=== PATIENT | female | born 1990 | race Caucasian/White ===

== ENCOUNTER → 2017-11-30 17:49 | Outpatient (REF) | payer MEDICAID, SELFPAY ==
[2017-11-30 20:58] LABS: Bacteria Few HPF (Negative); C & S Indicated? No; Casts Negative LPF (Negative); Crystals Negative HPF (Negative); Epithelial Cells Few HPF (Negative); Mucus Negative (Negative); RBC 0-2 (0-2); WBC 0-2 HPF (0-5)
[2017-12-01 16:27] LABS: T3,Free 2.7 pg/ml (2.8-5.3)
== END ==
LOC: NCHCN 17:49
PROVIDERS: PCP Specialist/Technologist Athletic Trainer; Visit Provider Specialist/Technologist Athletic Trainer
DX: E03.9 Hypothyroidism, unspecified (principal); N15.9 Renal tubulo-interstitial disease, unspecified
CPT/HCPCS: 81015; 84443; 84481

== ENCOUNTER 2017-12-18 00:34 | Outpatient (CLI) | payer MEDICAID, SELFPAY ==
--- NOTE | 2017-12-18 13:29 | DI.US_ITS ---
SYMPTOMS/DIAGNOSIS: RIGHT FLANK PAIN, R10.9, BLOOD IN URINE, RECENT UTI, ? KIDNEY STONES OR OTHER ETIOLOGY RENAL ULTRASOUND: There are no prior comparison exams. The kidneys are normal in size and echogenicity and show normal parenchymal thickness. No stones or hydronephrosis is visible. The prevoid bladder volume measured 91 cc. Both the ureteral jets were visualized. The postvoid residual measured 11 cc. There is a 2.8 x 2.7 x 3 cm hyperechoic lesion seen laterally in the right lobe of the liver, which could represent a hemangioma. IMPRESSION: Normal-appearing kidneys and bladder. A 3 cm liver lesion likely represents a hemangioma.
== END 2017-12-18 00:54 ==
PROVIDERS: PCP Family Medicine; Visit Provider Specialist/Technologist Athletic Trainer
DX: R10.31 Right lower quadrant pain (principal); R31.9 Hematuria, unspecified; N39.0 Urinary tract infection, site not specified; K76.9 Liver disease, unspecified
CPT/HCPCS: 76770

== ENCOUNTER 2019-04-16 15:54 | Outpatient (REF) | payer MEDICAID, SELFPAY ==
[2019-04-16 22:08] LABS: TSH (W/Ref FT4) 0.92 uIU/mL (0.36-3.74)
== END 2019-04-16 16:14 ==
LOC: NCHCN 15:54
PROVIDERS: PCP Family Medicine; Visit Provider Nurse Practitioner Family
DX: E03.9 Hypothyroidism, unspecified (principal)
CPT/HCPCS: 84443

== ENCOUNTER 2019-06-17 12:27 | Outpatient (CLI) | payer MEDICAID, SELFPAY ==
[2019-06-17 13:53] LABS: FREE T4 1.16 ng/dL (0.76-1.46)
[2019-06-17 21:40] LABS: T3,Free 2.8 pg/mL (2.8-5.3)
[2019-06-17 21:53] LABS: T3, Total 175 ng/dL (97-169)
[2019-06-18 09:37] LABS: C3 Complement 90 mg/dL (81-157); C4 Complement 17 mg/dL (13-39)
== END 2019-06-17 12:47 ==
PROVIDERS: PCP Family Medicine; Visit Provider Naturopath
DX: E03.9 Hypothyroidism, unspecified (principal); Z77.120 Contact with and (suspected) exposure to mold (toxic)
CPT/HCPCS: 84439; 84480; 84481; 86160

== ENCOUNTER 2019-12-02 13:56 | Outpatient (REF) | payer MEDICAID, SELFPAY ==
[2019-12-05 02:37] LABS: COVID-19 RT-PCR Result NEGATIVE (Negative)
== END 2019-12-02 14:16 ==
LOC: NCHCN 13:56
PROVIDERS: PCP Family Medicine; Visit Provider Nurse Practitioner Family
DX: J02.9 Acute pharyngitis, unspecified (principal)
CPT/HCPCS: U0003

== ENCOUNTER 2020-04-14 12:52 | Outpatient (REF) | payer MEDICAID, SELFPAY ==
[2020-04-14 15:37] LABS: TSH 1.17 uIU/mL (0.36-3.74)
== END 2020-04-14 13:12 ==
LOC: NCHCN 12:52
PROVIDERS: Nurse Practitioner Family; PCP Family Medicine; Visit Provider Family Medicine
DX: E03.9 Hypothyroidism, unspecified (principal)
CPT/HCPCS: 84443

== ENCOUNTER 2020-12-03 21:01 | Emergency (ER) | payer MEDICAID, SELFPAY ==
--- NOTE | 2020-12-03 21:00 | DI.RAD_ITS ---
Exam(s) XR ANKLE LT COMPLETE EXAM: XR ANKLE LT COMPLETE CLINICAL HISTORY: Pain, injury TECHNIQUE: COMPARISON: No exams were available for comparison FINDINGS: Three views were obtained. The ankle mortise is well maintained. No evidence of fracture or disloca tion. IMPRESSION: RADIATION DOSE DELIVERED: Total DLP
[2020-12-03 21:08] VITALS: BP 120/90; PULSE 70; RESP 14; TEMP 36.6; O2SAT 100
--- NOTE | 2020-12-03 21:12 | W.ED.GENAD ---
Discharge Plan Disposition Patient Disposition: HOME Condition: Stable Discharge Details Clinical Impression: Left ankle sprain Primary Care Provider: Alia Ferguson V ED Provider: Angela Solis Home Meds and New Rx's Prescriptions: No Action levothyroxine 88 mcg tablet 88 mcg PO DAILY RF: 0 Probiotic 20 billion cell Capsule 20 mmu cells PO DAILY RF: 0 Discharge Instructions Instructions: Ankle Sprain (ED) Additional Instructions: Rest, ice, compression, elevation. Wear the walking boot when up and around. Please take Tylenol or Ibuprofen with food every 4-6 hours as needed for pain and swelling. The x-rays today show no acute fracture. Please follow-up with orthopedics if continued pain and swelling after 2-weeks. Sprains may take up to 6 weeks to heal. Follow up with primary care provider in 3-5 days. Return to ED sooner if any worsening or concerns. Increase oral fluids. Referrals: Alia Ferguson MD [Primary Care Provider] - Cooper Carlos MD [ [facility] STAFF PHYSICIAN] - Medical Decision Making 30-year-old female presents to the ER chief complaint of left foot and ankle pain and swelling after an inversion type injury earlier today. She does have some swelling noted to the lateral aspect of her left foot. No obvious deformity. Circulation sensation movement intact distally. No other injuries or associated symptoms. xr left ankle ordered Imaging protocol: XR Left ankle. Views: 3 or more views. COMPARISON: No relevant prior studies available. FINDINGS: Bones/joints: Normal. Soft tissues: Normal. IMPRESSION: No acute findings. Thank you for allowing us to participate in the care of your patient. Dictated and Authenticated by: Chris Torres MD We will give patient a walking boot. Instructed on home care rest ice compression elevation. Instructed to follow-up with Ortho if no better or any worsening in the next 2 weeks. Patient verbalized understanding. Was given crutches but it was reviewed prior to discharge. HPI General Mode of arrival: wheelchair. Date/Time Provider Initiated Documentation: 12/03/20 21:01. Limitations to Documentation: no limitations. Information obtained by: patient. HPI Narrative: 30-year-old female presents to the ER chief complaint of left foot and ankle pain and swelling after an inversion type injury earlier today. She does have some swelling noted to the lateral aspect of her left foot. No obvious deformity. Circulation sensation movement intact distally. No other injuries or associated symptoms. Related Data Home Medications Medication Instructions Recorded Confirmed lactobacillus comb no.10 20 mmu cells PO DAILY 12/03/20 12/03/20 [Probiotic] levothyroxine 88 mcg PO DAILY 12/03/20 12/03/20 Allergies Allergy/AdvReac Type Severity Reaction Status Date / Time No Known Allergies Allergy Unverified 12/03/20 21:12 General Stated Complaint: Orthopedic ALEXA: 4 Review of Systems All systems reviewed & are unremarkable except as noted in HPI and below Musculoskeletal Musculoskeletal: Reports arthralgias and Reports joint swelling [facility] Social History Smoking/Tobacco Use Status: Never Smoking risk assessment performed?: Yes Alcohol Intake: never Substance use type: does not use Do you feel safe at home: Yes Do you feel safe in your relationship?: Yes Exam Extrem Left lower extremity: foot (swelling) Details: normal capillary refill; no abrasions and no lacerations Course Vital Signs Vital signs: Vital Signs Temperature 36.6 C 12/03/20 21:08 Pulse 70 12/03/20 21:08 Respiratory Rate 14 12/03/20 21:08 Blood Pressure 120/90 12/03/20 21:08 Pulse Oximetry 100 12/03/20 21:08 Temperature 36.6 C 12/03/20 21:08 Temperature Source Skin 12/03/20 21:08 Pulse 70 12/03/20 21:08 Respiratory Rate 14 12/03/20 21:08 Blood Pressure 120/90 12/03/20 21:08 Blood Pressure Position Sitting 12/03/20 21:08 Pulse Oximetry 100 12/03/20 21:08 Oxygen Delivery Method Room Air 12/03/20 21:08 Oxygen Flow Rate 0 12/03/20 21:08 Pain Level 2 12/03/20 21:08
--- NOTE | 2020-12-03 21:35 | DI.VRAD_ITS ---
PROCEDURE INFORMATION: Exam: XR Left Ankle Exam date and time: 12/03/2020 9:12 PM Age: 30 years old Clinical indication: Injury or trauma; Other: Rolled earlier today; Sprain or strain; Ankle; Left TECHNIQUE: Imaging protocol: XR Left ankle. Views: 3 or more views. COMPARISON: No relevant prior studies available. FINDINGS: Bones/joints: Normal. Soft tissues: Normal. IMPRESSION: No acute findings. Dictated and Authenticated by: Chris Torres MD. Ordering:JIMI Miller MD
[2020-12-03 22:11] VITALS: BP 126/68; PULSE 62; RESP 18; TEMP 36.6; O2SAT 98
== END 2020-12-03 22:25 | disposition home or self-care (01) ==
PROVIDERS: Emergency Provider Registered Nurse Emergency; PCP Family Medicine
DX: S93.492A Sprain of other ligament of left ankle, initial encounter (principal); X50.1XXA Overexertion from prolonged static or awkward postures, initial encounter
CPT/HCPCS: 29515; 99283; 73610; 99282

== ENCOUNTER 2021-01-29 01:15 | Outpatient (CLI) | payer MEDICAID, SELFPAY ==
--- NOTE | 2021-01-29 | DI.RAD_ITS ---
Exam(s) XR FOOT LT COMPLETE EXAM: XR FOOT LT COMPLETE CLINICAL HISTORY: LT FOOT PAIN, M79.672. TECHNIQUE: 2D digital imaging was performed of the left foot. Three images were obtained. AP, obli que and lateral views were obtained. COMPARISON: CR,XR XR ANKLE LT COMPLETE from 12/03/2020 FINDINGS: BONES: There is a lucency through the cuboid bones suspicious for nondisplaced fracture. The bone ap pears mildly osteopenic. No bony destructive lesion is seen. JOINTS: No dislocation present. SOFT TISSUE: Normal. IMPRESSION: Findings suspicious for a cuboid fracture. A CT scan of the left foot is recommended for further christine luation. DATA REPOSITORY: RADIATION DOSE DELIVERED:
== END 2021-01-29 01:35 ==
PROVIDERS: PCP Family Medicine; Visit Provider Nurse Practitioner Family
DX: M79.672 Pain in left foot (principal); M85.88 Other specified disorders of bone density and structure, other site
CPT/HCPCS: 73630

== ENCOUNTER 2021-02-08 01:27 | Outpatient (CLI) | payer MEDICAID, SELFPAY ==
--- NOTE | 2021-02-08 14:15 | DI.CT_ITS ---
Exam(s) CT LOWER EXTREMITY LT WO EXAM: CT LOWER EXTREMITY LT WO CLINICAL HISTORY: LT FOOT PAIN, M79.672,F/U XRAYS. TECHNIQUE: Imaging Protocol: Axial computed tomography images with coronal and sagittal reformatted images were created and reviewed. CONTRAST MATERIAL: None COMPARISON: CR XR FOOT LT COMPLETE from 01/29/2021 Also ankle x-ray 12/05/2019 FINDINGS: OSSEOUS: There is generalized osteopenia. However, there are no fractures evident. There is no evidence of o bvious cuboid fracture, apparently area of concern from recent plain films. Calcaneocuboid joint patrick ears unremarkable. Base of the 5th metatarsal appears intact. There are no obvious degenerative juan ramon nges nor erosions and no ominous osseous lesions. SOFT TISSUES: No formed fluid collection. No organized fluid collection. IMPRESSION: There is generalized osteopenia but no evidence of fracture lines. If there is a high clinical suspicion for an occult or stress fracture then MRI would be recommended. This may reveal fractures that are not seen on CT scan, particularly in the setting of osteopenia. RADIATION DOSE DELIVERED: 218.54mGy.cm Total DLP DATA REPOSITORY: All CT scans at this facility are submitted to the National Radiology Data Registry (NRDR) Dose Index Registry (DIR) with the [employer] ([employer]). RADIATION OPTIMIZATION: All CT scans at this facility use at least one of these dose optimization te chniques: automated exposure control; mA and/or kV adjustment per patient size (includes targeted exa ms where dose is matched to clinical indication); or iterative reconstruction.
== END 2021-02-08 01:47 ==
PROVIDERS: PCP Family Medicine; Visit Provider Nurse Practitioner Family
DX: M79.672 Pain in left foot (principal); M85.88 Other specified disorders of bone density and structure, other site
CPT/HCPCS: 73700

== ENCOUNTER 2021-02-22 02:28 | Outpatient (CLI) | payer MEDICAID, SELFPAY ==
--- NOTE | 2021-02-22 10:45 | DI.MRI_ITS ---
Exam(s) MR LOWER EXTREMITY LT WO EXAM: MR LOWER EXTREMITY LT WO CLINICAL HISTORY: FRACTURE OF CUBOID OF LT FOOT, SEQUELA S92.215S TECHNIQUE: Multiplanar multisequence MRI was performed without intravenous contrast. COMPARISON: CT CT LOWER EXTREMITY LT WO from 02/08/[address] LOWER EXTREMITY LT WO from 02/08/2021 FINDINGS: SKIN: No evidence of ulcer nor subcutaneous tract. BONES/JOINTS: There are fractures of both the talus and calcaneus seen on this MRI study. Calcaneus fracture lines are best seen on the T1 images and there is prominent surrounding intra osseous edema. No significant displacement. Fracture in the mid-distal talus also noted. There also appears to b e some intraosseous edema in the posterior half of the talar dome, laterally. However, there is no o steochondral defect at this level. The ankle mortise is maintained. Mild increase intraosseous si gnal is seen in the medial malleolus. Small increased amount of fluid in the ankle joint.There is no evidence of osseous tarsal coalition. More distally in the foot there is no abnormal intraosseous signal in the bases of the metatarsals. However, main Lisfranc ligament between the base of 2nd metatarsal and the medial cuneiform exhibits abnormal signal consistent with at least partial tearing. LIGAMENTS: The anterior and posterior tibiofibular and calcaneofibular ligaments are intact. The ante rior and posterior talofibular ligaments are intact. There is no abnormal mass in the anterolateral gutter. The deltoid ligament is intact. SINUS TARSI: There is effacement of the normal fat signal in this space. Interosseous ligament is in tact. There is no evidence of sinus tarsi ganglion cyst. ANTEROLATERAL GUTTER:There is no abnormal signal/abnormal tissue in this space. MUSCULOTENDINOUS STRUCTURES: Achilles tendon: Mild increased signal within its substance consistent with tendinitis. No high-grad e tear. Plantar fascia: Unremarkable. No evidence of tear, abnormal thickening, nor abnormal nodularity. Anterior Extensor tendons: Unremarkable. Medial Tendons: Posterior Tibialis: Unremarkable. No tear or tenosynovitis evident. Flexor Digitorum longus: Unremarkable. No tear or tenosynovitis evident. Flexor Hallicus longus: Unremarkable. No tear or tenosynovitis evident. Lateral Tendons: Peroneus longus: Unremarkable. No tear nor tenosynovitis evident. Peroneus brevis:Unremarkable. No tear nor tenosynovitis evident. SOFT TISSUES: Unremarkable. OTHER FINDINGS: None. IMPRESSION: 1. There are nondisplaced fractures of both the cuboid and talus, significantly better seen with MRI than on the recent CT scan. There is bone edema confined to these bones. 2. Also noted in the peripheral field of view here possible abnormality of the Lisfranc joint ligamen t which appears to exhibit some abnormal signal and may be partially torn. There is, however, no amadeo dence of fracture of the base of the metatarsals. 3. There are no tendon tears nor tenosynovitis. However, there is tendinitis signal evident within t he Achilles tendon approximately 3 cm above the insertion site on the posterior calcaneus. There is trace fluid in the retrocalcaneal bursa. DATA REPOSITORY:
== END 2021-02-22 02:48 ==
PROVIDERS: PCP Family Medicine; Visit Provider Nurse Practitioner Acute Care
DX: S92.215D Nondisplaced fracture of cuboid bone of left foot, subsequent encounter for fracture with routine healing (principal); R60.0 Localized edema; M76.62 Achilles tendinitis, left leg; S92.145D Nondisplaced dome fracture of left talus, subsequent encounter for fracture with routine healing
CPT/HCPCS: 73718

== ENCOUNTER 2021-04-22 18:19 | Outpatient (REF) | payer MEDICAID, SELFPAY ==
--- NOTE | 2021-04-22 15:00 | PAPFT_PTH ---
PATIENT: Josie Boyd LOC: [facility]#:[id number] AGE/SX: 30/F ROOM: RE04/22/[address]: Abigail Panda : 1990 BED: DIS: 04/22/2021 SPEC #: [id number] RECD: 04/22/21 18:23 STATUS: HANNAH REQ #: [id number] HEBER: 04/22/21 15:[address]: Abigail Panda DEPT: [facility] Cytology RECD BY: Sonya Hickey ENTERED: 04/22/21 18:23 SP TYPE: PAPFT OTHR DR: Alia Ferguson V Tissues: 1 - CX/ENDOCX FOR PAP SMEARS Procedures: PAP THIN PREP/UVM Screening HPV DNA PROBE Comments: [id number]
[2021-04-22 19:39] LABS: HCT 40.4 % (36.0-46.0); HGB 13.5 g/dL (11.2-15.7); MCH 30.9 pg (27.0-33.0); MCHC 33.4 % (32.0-36.0); MCV 92.4 fL (80-95); MPV 11.3 fL (8.0-11.0); Platelet Count 182 10^3/uL (130-400); RBC 4.37 10^6/uL (3.93-5.22); RDW 11.2 % (11.7-14.6); RDW-SD 38.3 fL; WBC 8.01 10^3/uL (4.4-10.8)
[2021-04-24 12:17] LABS: HIV-1/2 Ag & Ab Screen Negative (Negative)
[2021-04-26 10:53] LABS: Hepatitis C Ab w Rflx HCV PCR Negative (Negative)
[2021-04-26 16:24] LABS: Chlamydia Result Negative (Negative); GC Result Negative (Negative)
== END 2021-04-22 18:20 | disposition home or self-care (01) ==
LOC: NCHCN 18:19
PROVIDERS: PCP Family Medicine; Visit Provider Nurse Practitioner Family
DX: E03.9 Hypothyroidism, unspecified (principal); N94.12 Deep dyspareunia; Z11.59 Encounter for screening for other viral diseases; Z11.3 Encounter for screening for infections with a predominantly sexual mode of transmission; Z11.4 Encounter for screening for human immunodeficiency virus [HIV]; Z12.4 Encounter for screening for malignant neoplasm of cervix; Z11.51 Encounter for screening for human papillomavirus (HPV); Z01.419 Encounter for gynecological examination (general) (routine) without abnormal findings
CPT/HCPCS: 85027; 86803; 87389; 87491; 87591; 88142; 84443; 85025; 87480; 87510; 87624; 87660

== ENCOUNTER 2021-05-12 15:11 | Outpatient (REF) | payer MEDICAID, SELFPAY ==
[2021-05-14 20:04] LABS: Calprotectin <50.0 mcg/g
== END 2021-05-12 15:12 | disposition home or self-care (01) ==
LOC: NCHCN 15:11
PROVIDERS: PCP Family Medicine; Visit Provider Nurse Practitioner Family
DX: K58.1 Irritable bowel syndrome with constipation; K59.04 Chronic idiopathic constipation; R14.0 Abdominal distension (gaseous)
CPT/HCPCS: 83993; 87177

== ENCOUNTER 2022-05-12 16:25 | Outpatient (REF) | payer MEDICAID, SELFPAY ==
[2022-05-12 18:48] LABS: HCT 43.5 % (36.0-46.0); HGB 14.8 g/dL (11.2-15.7); MCH 30.7 pg (27.0-33.0); MCV 90 fL (80-95); MPV 10.6 fL (8.0-11.0); Platelet Count 227 10^3/uL (130-400); RBC 4.82 10^6/uL (3.93-5.22); RDW 11.4 % (11.7-14.6); RDW-SD 37.9 fL
[2022-05-12 19:13] LABS: TSH 2.19 uIU/mL (0.36-3.74)
[2022-05-12 19:25] LABS: Vitamin D 25 Total 40.3 ng/mL (30-100)
== END 2022-05-12 16:26 | disposition home or self-care (01) ==
LOC: NCHCN 16:25
PROVIDERS: PCP Family Medicine; Visit Provider Nurse Practitioner Family
DX: E03.9 Hypothyroidism, unspecified (principal); R00.2 Palpitations; F33.9 Major depressive disorder, recurrent, unspecified; N94.12 Deep dyspareunia; L30.9 Dermatitis, unspecified
CPT/HCPCS: 82306; 85027; 84443

== ENCOUNTER 2022-05-26 13:06 | Outpatient (RCR) | payer MEDICAID, SELFPAY ==
--- NOTE | 2022-05-26 13:00 | HOLTER_ITS ---
APPROVED REPORT Conclusion This is a 48-hour Holter monitor ordered for palpitations Rhythm throughout was sinus with an average heart rate of 66. Minimum was 48, maximum 112 There were very rare isolated atrial and ventricular ectopic beats There was no atrial fibrillation no high-grade AV block no SVT no pauses greater than 3 seconds Multiple patient symptoms were reported none of which corresponded to any dysrhythmia
== END 2022-06-07 23:59 | disposition home or self-care (01) ==
LOC: CARDOPNVT 13:06
PROVIDERS: PCP Family Medicine; Visit Provider Nurse Practitioner Family
DX: R00.2 Palpitations (principal)
CPT/HCPCS: 93225; 93226

== ENCOUNTER 2023-05-15 17:22 | Outpatient (REF) | payer MEDICAID, SELFPAY ==
[2023-05-15 19:48] LABS: TSH 1.36 uIU/mL (0.36-3.74)
== END 2023-05-15 17:23 | disposition home or self-care (01) ==
LOC: NCHCN 17:22
PROVIDERS: PCP Family Medicine; Visit Provider Nurse Practitioner Family
DX: E03.9 Hypothyroidism, unspecified (principal)
CPT/HCPCS: 84443

== ENCOUNTER 2025-02-03 11:59 | Outpatient (REF) | payer MEDICAID, SELFPAY ==
[2025-02-03 15:45] LABS: Hemoglobin A1C 5.1 % (<5.7)
[2025-02-03 16:28] LABS: ALT 17 U/L (14-59); AST 8 U/L (15-37); Albumin 4.4 g/dL (3.4-5.0); Alkaline Phosphatase 62 U/L (46-116); Anion Gap 9.7 mmol/L (3-11); BUN 12 mg/dL (7-18); Bilirubin, Total 0.5 mg/dL (0.2-1.0); CO2 26.3 mmol/L (21.0-32.0); Calcium 9.2 mg/dL (8.5-10.1); Chloride 104 mmol/L (98-107); Cholesterol 124 mg/dL (<200); Estimated GFR 115.59 (mL/min/1.73m2); Glucose 80 mg/dL (74-106); HDL Cholesterol 49 mg/dL (>or=50); Potassium 4.0 mmol/L (3.5-5.1); Sodium 140 mmol/L (136-145); TSH 3.04 uIU/mL (0.36-3.74); Total Protein 7.5 g/dL (6.4-8.2)
[2025-02-03 16:37] LABS: Triglyceride <25 mg/dL (<150)
[2025-02-03 17:43] LABS: LDL CHOLESTEROL 66 mg/dL (<100)
== END 2025-02-03 12:00 | disposition home or self-care (01) ==
LOC: NCHCN 11:59
PROVIDERS: PCP Family Medicine; Visit Provider Nurse Practitioner Family
DX: Z00.00 Encounter for general adult medical examination without abnormal findings (principal); E03.9 Hypothyroidism, unspecified
CPT/HCPCS: 80053; 80061; 83721; 83036; 84443